=== PATIENT | male | born 1945 | race Caucasian/White ===

== ENCOUNTER → 2021-08-31 10:36 | Outpatient (REF) | payer OTHER, SELFPAY | LOC: ANHLAB 10:36 | PROVIDERS: PCP Internal Medicine; Visit Provider Nurse Practitioner | DX: D49.2 Neoplasm of unspecified behavior of bone, soft tissue, and skin (principal) | CPT/HCPCS: 88305 ==

== ENCOUNTER → 2021-09-30 08:42 | Outpatient (REF) | payer OTHER, SELFPAY | LOC: ANHLAB 08:42 | PROVIDERS: PCP Internal Medicine; Visit Provider Nurse Practitioner | DX: D49.2 Neoplasm of unspecified behavior of bone, soft tissue, and skin (principal) | CPT/HCPCS: 88305 ==

== ENCOUNTER 2022-01-11 12:30 | Outpatient (RCR) | payer OTHER, SELFPAY ==
--- NOTE | 2021-12-31 09:06 | PTOPEVAL ---
PHYSICAL THERAPY EVALUATION AND PLAN OF CARE 12-31-21 Thank you for referring Thiago Justice to [facility] for the diagnosis of lymphedema R LE. He is scheduled to be seen for therapy? 3 x/week for 4 weeks. Please review, sign, date and return this plan of care MAHNAZ. I agree with and certify that the following plan of care is medically necessary. 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 Cardiovascular History Hx Hypercholesterolemia Yes: meds Hx Hypertension Yes: meds Respiratory History Hx COVID-19 Yes: Jun 2020 Gastrointestinal History Hx Gastrointestinal Disorders No Significant History Genitourinary History Hx Genitourinary Disorders No Significant History Musculoskeletal History Hx Musculoskeletal Disorders No Significant History Endocrine History Hx Endocrine Disorders No Significant History HEENT History Hx Other HEENT Disorders Yes: wear glasses; Integumentary History Hx Other Skin Disorders Yes: melanoma removed R leg- benign Other History Hx Other Medical Conditions Yes: obesity 277# Evaluation Information Diagnosis lymphedema of R leg Onset one year Prior Level of Function Activity Level (Last 3 Months) Activity of Daily Living Ability Independent Indoor/Home Mobility Independent Community Mobility Independent Stairs Ability Independent Functional Cognition (Planning, Shopping Needs Some Help , Taking Medications) Cooking Yes Cleaning Yes Laundry Yes Shopping Yes Driving Yes Home Setting Home Type House Environmental Barriers Stairs, 2-4 Living Situation Alone Support Available Local Family Support Mobility Assistive Devices (Used Last 3 None Months) Comments Additional Prior Level of Function daughter assists with meds and Comments checks on pt daily; in the past 6 months have had 3 falls - slipped on rug, found on floor; assist off floor with family; educated on correct technique to assist pt with getting up off floor; not very active--few home tasks and watch TV; Pain Assessment Pain Scale Pain Scale Used
--- NOTE | 2021-12-31 10:52 | PCPTNOTE ---
pt's daughter signed consent for photo to be taken of pt's leg;
--- NOTE | 2022-01-12 13:40 | PCPTNOTE ---
PHYSICAL THERAPY DISCHARGE 01-12-22 Attending Provider: Munir Lr APRN Patient:Thiago Justice Date of :1945 Thiago received 4 PT sessions for LE lymphedema. His treatment included multi layer compression wraps, but due to dementia, he would remove the wraps, so they were not effective compression to decrease his lymphedema. He also removed the velcro garments, so we were not able to provide the required compression treatment. His daughter called today and canceled his PT treatment due to above. On the phone I discussed with her compression knee high socks, medical grade from [employer] for better fit. She stated he does not wear socks and could probably not put them on; he tends to wear only slip on shoes. The goals were not assessed. Thank you for referring Thiago to [facility]. Please review, sign, date and return this discharge summary MAHNAZ. I have been updated about the patient's current status and I agree with discharge from the above service at this time. Referring Physician Date
== END 2022-01-13 10:36 | disposition home or self-care (01) ==
LOC: ANHPT 12:30
PROVIDERS: PCP Internal Medicine; Visit Provider Nurse Practitioner
DX: I89.0 Lymphedema, not elsewhere classified (principal)
CPT/HCPCS: 29581; 97140; 97161